=== PATIENT | male | born 1960 | race Caucasian/White ===

== ENCOUNTER 2019-12-24 07:49 | Inpatient (IN) | payer OTHER ==
[~2019-12-24] VITALS: Ht 175.3 cm; Wt 104.6 kg
[2019-12-24 07:45] VITALS: BP 117/70
[2019-12-24] MEDS ORDERED: PIPERACILLIN-TAZOB 3.375GM 100 ML IV ONE (08:15)
[2019-12-24] MEDS ORDERED: SODIUM CHLORIDE 0.9% 1,000 ML IV ONE ×2 (08:15)
[2019-12-24 08:24] LABS: Hemoglobin 14.5 g/dL (13.5-17.5); Mean Corpuscular Hemoglobin 29.7 pg (28.0-32.0); Mean Corpuscular Hgb Conc. 32.2 g/dL (32.0-36.0); Mean Corpuscular Volume 92.4 fL (80.0-100.0); Platelet Count (auto) 283 10^3/uL (140-450); Red Blood Cells 4.87 10^6/uL (4.5-5.90); Red Cell Distribution Width 15.3 % (11.8-14.3); White Blood Cell 24.3 10^3/uL (4.4-10.8)
[2019-12-24 08:32] LABS: Basophils % (manual) 0 (0.0-2.0); Blast Cells 0; Promyelocytes % 0; Reactive Lymphocytes 0
[2019-12-24 08:44] LABS: Urine Bacteria FEW /hpf (None Seen); Urine Blood Negative /uL (Negative); Urine Mucus FEW (None Seen); Urine Specific Gravity 1.017 (1.001-1.035); Urine WBC 2 /hpf (0 - 3)
[2019-12-24 08:46] LABS: Albumin 3.4 g/dL (3.4-5.0); Anion Gap 0 (5-15); Blood Urea Nitrogen 11 mg/dL (7-18); Calcium 8.5 mg/dL (8.5-10.1); Carbon Dioxide 33 mmol/L (21-32); Chloride 102 mmol/L (98-107); Glucose 268 mg/dL (74-106); Potassium 4.3 mmol/L (3.5-5.1); Sodium 135 mmol/L (136-145)
[2019-12-24 08:49] LABS: INR 0.97 (0.9-1.15); Partial Thromboplastin Time 21.8 sec (23.0-31.2)
[2019-12-24 08:51] LABS: Alanine Aminotransferase 40 U/L (16-61); Alkaline Phosphatase 78 U/L (45-117); Aspartate Aminotransferase 22 U/L (15-37); BUN/Creatinine Ratio 61.1; Bilirubin, Total 0.2 mg/dL (0.2-1.0); CRP High Sensitivity 0.62 mg/dL (< 0.3); GFR African American 707 mL/min; GFR Non-African American 584 mL/min; Lactate Dehydrogenase 195 U/L (87-241); Total Protein 7.2 g/dL (6.4-8.2)
[2019-12-24 09:07] LABS: Band Neutrophils % (manual) 2; Eosinophils % (manual) 1 (0-7); Lymphocytes % (manual) 4 (10.0-50.0); Metamyelocytes % 3; Monocytes % (manual) 11 (0-12); Myelocytes % 2
[2019-12-24] MEDS ORDERED: HYDROcodone-ACET 5/325MG TAB PO PRN ×2 (11:15→12:00)
[2019-12-24] MEDS ORDERED: NITROGLYCERIN 0.4 MG SL TAB SL PRN ×2 (11:15→12:00)
[2019-12-24] MEDS ORDERED: MORPHINE SULF INJ 2 MG/ML SYRINGE 1ML IV PRN ×4 (11:15→12:00)
[2019-12-24] MEDS ORDERED: ACETAMINOPHEN 325 MG TAB PO PRN ×2 (11:15→12:00)
[2019-12-24] MEDS ORDERED: ONDANSETRON HCL 4 MG/2 ML VIAL IV PRN ×2 (11:15→12:00)
[2019-12-24 12:09] VITALS: BP 123/87
[2019-12-24] MEDS: ENOXAPARIN SOD 40 MG/0.4 ML SYRINGE SC SCH (12:41)
[2019-12-24] MEDS: levoFLOXacin 500MG 100 ML IV SCH (12:41)
[2019-12-24] MEDS: FAMOTIDINE 20 MG TAB PO SCH ×2 (12:41→22:00)
[2019-12-24 14:04] VITALS: BP 123/87
[2019-12-24 14:28] VITALS: BP 135/90
--- NOTE | 2019-12-24 18:15 | NUR ---
Telemetry admit from ER PREETIAMBER admitted to Telemetry unit after SBAR received. Patient oriented to Patricia Larkin, primary RN, unit, room, bed, and unit policies regarding patient care and visiting hours. Patient now on continuous telemetry monitoring, tele box # 46 and telemetry reading on arrival to unit is sinus rhythm at 96. Patient placed on bedside oxygen, weighed by bedscale and encouraged to call if they need something. All questions and concerns addressed, patient verbalized understanding. Pt has a trach and connected to the vent, marcus draining to gravity, MRSA swab done and sent to lab, attempted to turn and reposition pt, pt refused to turn, elevated bilateral lower extremities on a pillow, will continue to monitor pt.
--- NOTE | 2019-12-24 19:00 | NUR ---
Received a call from pt's , Stefany Garcia, , pt's requesting for pt to have coughing assist treatments with the cough assist machine Q4 hr, pt was told by ER and RT that we do not have the cough assist machine here at the hospital and that we can not take or use pt's home machine, pt's requesting to come at the hospital and provide the treatments to the pt.
--- NOTE | 2019-12-24 19:10 | NUR ---
Called and talked to night shift manager charge nurse and inform her the pt's request to have RT provide pt with coughing assist treatments with the cough assist machine Q4 hr, pt's was told by ER and RT that we do not have the cough assist machine here at the hospital and that we can not take or use pt's home machine, pt's requesting to come at the hospital and provide the treatments to the pt. Charge nurse suggested to call doctor for an order and to ok for pt's to stay at the pt's room.
--- NOTE | 2019-12-24 19:20 | NUR ---
Called and talked to Dr. Stauffer, doctor informed that pt's is requesting for pt to have coughing assist treatments with the cough assist machine Q4 hr, doctor also informed that the hospital does not have the cough assist machine and that RT can not take or use pt's home machine, pt's requesting to come at the hospital and provide the treatments to the pt. Received orders for pt's to provide the cough treatments at bed side and ok for pt's to stay at the pt's room. Pt's informed. non destructive evaluation manager nurse informed.
--- NOTE | 2019-12-24 19:25 | NUR ---
Dr. Gonzales / industrial machine system technician at bed side to see pt, doctor discussed the plan of care with pt, doctor informed that pt's was ok to come and provide pt with the cough assist treatments at bed side Q4hr.
--- NOTE | 2019-12-24 19:35 | NUR ---
OPENING NOTE SHIFT Assumed care of patient from Patricia GODOY, patient is ALOCx4, pt has a permanent trach in place with vent set up bedside. No S/S of distress noted or SOB. Patient denies any pain at this time. POC discussed with pt and all questions answered. Bed in lowest position, locked, an side rails up x2. Call light within reach
[2019-12-24 20:00] VITALS: BP 118/82
--- NOTE | 2019-12-24 21:30 | NUR ---
BEDSIDE Patient is now bedside with cough assist machine. Will page RT.
[2019-12-24] MEDS ORDERED: FAMOTIDINE 20 MG TAB PO SCH (22:00)
[2019-12-24 22:04] VITALS: BP 118/84
[2019-12-25] VITALS (7 sets, daily range): BP systolic 90–119; BP diastolic 58–75
[2019-12-25] MEDS ORDERED: ASPI-543 PO (02:46)
[2019-12-25] MEDS ORDERED: PED1DRO5 PO (02:48)
[2019-12-25] MEDS ORDERED: PANT40TA2 PO (02:53)
[2019-12-25] MEDS ORDERED: CHOL20007 PO (02:53)
[2019-12-25] MEDS ORDERED: SENN-46 PO (02:59)
[2019-12-25] MEDS ORDERED: LORA5SYP23 PO (03:04)
[2019-12-25] MEDS ORDERED: ACET-1156 PO (03:04)
[2019-12-25] MEDS ORDERED: CLOT1CRE13 TOP (03:04)
[2019-12-25] MEDS ORDERED: [UNRECOGNIZED DRUG - CODE] BC (03:04)
[2019-12-25] MEDS ORDERED: DOCU100T15 PO (03:04)
[2019-12-25] MEDS ORDERED: IPRA0.03 (03:06)
[2019-12-25] MEDS ORDERED: BACI1CAP5 PO (03:11)
[2019-12-25] MEDS ORDERED: AMLO5TAB15 PO (03:11)
[2019-12-25] MEDS ORDERED: POLY33504 PO (03:14)
[2019-12-25] MEDS ORDERED: BISA10SU45 RE (03:16)
[2019-12-25 06:03] LABS: Hematocrit 40.3 % (41.0-53.0); Hemoglobin 13.3 g/dL (13.5-17.5); Mean Corpuscular Hemoglobin 29.4 pg (28.0-32.0); Mean Corpuscular Volume 89.1 fL (80.0-100.0); Platelet Count (auto) 269 10^3/uL (140-450); Red Blood Cells 4.52 10^6/uL (4.5-5.90); Red Cell Distribution Width 14.4 % (11.8-14.3); White Blood Cell 10.2 10^3/uL (4.4-10.8)
--- NOTE | 2019-12-25 06:03 | NUR ---
Respiratory note: RT PAGED TO BEDSIDE, REQUESTED BY PT'S TO TAKE PT OFF VENTILATOR FOR COUGH ASSIST. PER DR. CRENSHAW'S ORDERS, OK FOR TO PROVIDE COUGH ASSIST TREATMENT TO PT. PREOXYGENATED PT WITH 100% AND REMOVED FROM VENT. PT'S PERFORMED COUGH ASSIST TREATMENT WITH RT AT BEDSIDE, PT WAS SUCTIONED FOR MODERATE AMOUNT THICK WHITE/CLEAR SECRETIONS. PLACED PT BACK ON VENTILATOR WITH PREVIOUS SETTINGS. COMPLETED WITHOUT INCIDENT. TRACH ASSESSMENT COMPLETED. PT AWAKE AND ALERT, TOLERATING VENT WELL, NO S/S OF DISTRESS. AT BEDSIDE. WILL CONT TO MONITOR.
[2019-12-25 06:26] LABS: Basophils % (manual) 0 (0.0-2.0); Blast Cells 0; Metamyelocytes % 0; Myelocytes % 0; Promyelocytes % 0; Reactive Lymphocytes 0
[2019-12-25 06:32] LABS: Chloride 106 mmol/L (98-107); Sodium 139 mmol/L (136-145)
[2019-12-25 06:40] LABS: Alanine Aminotransferase 28 U/L (16-61); Albumin 3.1 g/dL (3.4-5.0); Alkaline Phosphatase 64 U/L (45-117); Anion Gap 10 (5-15); Aspartate Aminotransferase 18 U/L (15-37); Bilirubin, Total 0.4 mg/dL (0.2-1.0); Blood Urea Nitrogen 15 mg/dL (7-18); Calcium 8.8 mg/dL (8.5-10.1); Carbon Dioxide 23 mmol/L (21-32); GFR African American 872 mL/min; GFR Non-African American 721 mL/min; Glucose 100 mg/dL (74-106); Magnesium 2.3 mg/dL (1.6-2.6); Total Protein 6.3 g/dL (6.4-8.2)
[2019-12-25 06:43] LABS: Potassium 2.9 mmol/L (3.5-5.1)
--- NOTE | 2019-12-25 07:00 | NUR ---
PAGED HOSPITALIST Critical potassium 2.9
--- NOTE | 2019-12-25 07:17 | NUR ---
End of shift note Endorsed care to day shift Patricia GODOY. No s/s of distress or SOB noted
--- NOTE | 2019-12-25 08:32 | NUR ---
Received call back from Dr. gibson, doctor informed regarding the critical lab value potassium 2.9, received orders for potassium 40 meq po X1 and potassium 40meq IV X1.
[2019-12-25 08:37] LABS: Band Neutrophils % (manual) 3; Eosinophils % (manual) 2 (0-7); Lymphocytes % (manual) 18 (10.0-50.0); Monocytes % (manual) 8 (0-12)
[2019-12-25] MEDS ORDERED: POTASSIUM CHL 20 Meq TABLET PO ONE (08:45)
--- NOTE | 2019-12-25 09:00 | NUR ---
WOUND CARE NOTE: ORDERED SYNERGY AIR ELITE AIR MATTRESS AT THIS TIME. PATIENT TO BE PLACED, PENDING DELIVERY BY CHEO MITCHELL.
[2019-12-25] MEDS: FAMOTIDINE 20 MG TAB PO SCH ×2 (09:42→21:37)
[2019-12-25] MEDS: POTASSIUM CHL 20MEQ/100ML 100 ML IV SCH ×2 (09:44→12:53)
[2019-12-25] MEDS: levoFLOXacin 500MG 100 ML IV SCH (09:44)
[2019-12-25] MEDS: ENOXAPARIN SOD 40 MG/0.4 ML SYRINGE SC SCH (09:56)
[2019-12-25] MEDS ORDERED: levoFLOXacin 500MG 100 ML IV SCH (10:00)
[2019-12-25] MEDS ORDERED: ENOXAPARIN SOD 40 MG/0.4 ML SYRINGE SC SCH (10:00)
--- NOTE | 2019-12-25 11:25 | NUR ---
Called and spoke to Dr. Stauffer to inform that pt was not responding, and diaphoretic, BS 116, temp 99.2, BP 65/44, P 73, O2 sat 96%, pt on vent, rechecked BP 63/39, HR 72, received orders to give a 500ml bolus of NS, recheck pt's BP and if below 90 give another 500ml bolus, recheck BP and if BP is below 90 again to upgrade pt and to start on Levophed.
--- NOTE | 2019-12-25 11:30 | NUR ---
WOUND CARE NOTE: PATIENT RECENTLY ADMITTED TO [facility] WITH DIAGNOSIS OF ACUTE RESPIRATORY FAILURE, ALS. CURRENT CONY SCORE IS 12. PATIENT IS IMMOBILE, MAX ASSIST FOR HIS ADL'S. PATIENT IS VENTILATED WITH PERMANENT TRACHEOSTOMY. PATIENT IS UNRESPONSIVE RIGHT NOW, RESPIRATORY THERAPISTS ARE AT BEDSIDE. IS AT BEDSIDE. PATIENT. SKIN APPEARS PINK, BLANCHABLE, ALTHOUGH UNABLE TO ASSESS PATIENT'S SACRUM/BACK. PER BEDSIDE NURSE, SKIN ON BACKSIDE WAS BLANCHABLE AT LAST ASSESSMENT. SPECIALTY AIR MATTERESS IS PENDING DELIVERY. PATIENT WILL BE PLACED, PENDING DELIVERY. SKIN/WOUND CARE PLAN IMPLEMENTED. RECOMMEND: FREQUENT TURN SCHEDULE Q 2 HOURS,PRN CONDITION PERMITS, WITH PRESSURE REDISTRIBUTION USING PILLOWS/WEDGES, BID/PRN APPLICATION WITH MOISTURE BARRIER CREAM, OPTIFOAM GENTLE SACRAL DRESSING, SPECIALTY AIR MATTRESS, DIETARY CONSULT FOR IMMOBILITY/LOW CONY/VENTILATION; SKIN/WOUND CARE PLAN, CONTINUED MONITORING BY WOUND CARE TEAM.
--- NOTE | 2019-12-25 12:50 | NUR ---
Rechecked pt's BP 91/58, HR 70, O2 sat 97%, bolus given 500ml as per doctor's orders.
[2019-12-25] MEDS ORDERED: SODIUM CHLORIDE 0.9% 500 ML IV ONE (13:00)
--- NOTE | 2019-12-25 15:30 | NUR ---
Pt placed on air mattress with RT and PT at bed side.
--- NOTE | 2019-12-25 17:17 | NUR ---
Dr. Stauffer at unit to see pt. Signed: 12/25/19 at 1718 by SN LOLY <Co-Signature Required> Co-Signed: 12/25/19 at 1718 by Patricia Larkin RN
--- NOTE | 2019-12-25 19:20 | NUR ---
OPENING NOTE SHIFT Assumed care of patient from Patricia GODOY, patient is ALOCx4, pt has a permanent trach in place with vent set up bedside. No S/S of distress noted or SOB. Patient denies any pain at this time. is bedside, and POC discussed with pt and all questions answered. Bed in lowest position, locked, side rails up x2. Call light within reach. Will continue to monitor PRN.
[2019-12-26 05:00] VITALS: BP 94/65
[2019-12-26 05:49] LABS: Hemoglobin 12.7 g/dL (13.5-17.5); Mean Corpuscular Hemoglobin 30.1 pg (28.0-32.0); Mean Corpuscular Hgb Conc. 33.5 g/dL (32.0-36.0); Platelet Count (auto) 134 10^3/uL (140-450); Red Blood Cells 4.22 10^6/uL (4.5-5.90); Red Cell Distribution Width 14.8 % (11.8-14.3); White Blood Cell 7.4 10^3/uL (4.4-10.8)
[2019-12-26 06:12] LABS: Anion Gap 9 (5-15); Carbon Dioxide 22 mmol/L (21-32); Chloride 109 mmol/L (98-107); Glucose 91 mg/dL (74-106); Potassium 4.4 mmol/L (3.5-5.1); Sodium 140 mmol/L (136-145)
[2019-12-26 06:18] LABS: BUN/Creatinine Ratio 93.3; Basophils % (manual) 0 (0.0-2.0); Blast Cells 0; Blood Urea Nitrogen 14 mg/dL (7-18); Eosinophils % (manual) 0 (0-7); GFR African American 872 mL/min; GFR Non-African American 721 mL/min; Metamyelocytes % 0; Promyelocytes % 0; Reactive Lymphocytes 0
[2019-12-26 07:07] LABS: Band Neutrophils % (manual) 1; Lymphocytes % (manual) 49 (10.0-50.0); Monocytes % (manual) 16 (0-12); Myelocytes % 3
--- NOTE | 2019-12-26 07:30 | NUR ---
Opening Shift Note Assumed care of patient, awake, alert, and oriented. No S/S of distress/SOB or pain. Bed in lowest/locked position, bed rails up x2, call light within reach. , Jeimy, at bedside. Instructed on POC and to call for assist PRN. Will continue to monitor for changes Q1hr and PRN.
--- NOTE | 2019-12-26 07:30 | NUR ---
TURN PATIENT AND , NEIL, REFUSING PATIENT TO BE TURNED. EDUCATED PATIENT AND OF PREVENTING BED SORES. PATIENT AND VERBALIZED UNDERSTANDING, PER PATIENT "HE DOESN'T EVER GET BED SORES."
--- NOTE | 2019-12-26 07:31 | NUR ---
End of shift note Endorsed care to day shift Shanta RN. No s/s of distress or SOB noted at this time.
[2019-12-26 09:00] VITALS: BP 105/71
[2019-12-26] MEDS: FAMOTIDINE 20 MG TAB PO SCH ×2 (09:20→21:54)
[2019-12-26] MEDS: ENOXAPARIN SOD 40 MG/0.4 ML SYRINGE SC SCH (09:21)
[2019-12-26] MEDS: levoFLOXacin 500MG 100 ML IV SCH (09:26)
--- NOTE | 2019-12-26 09:30 | NUR ---
TURN PATIENT AND , NEIL, REFUSING PATIENT TO BE TURNED. EDUCATED PATIENT AND OF PREVENTING BED SORES. PATIENT AND VERBALIZED UNDERSTANDING, CONTINUING TO REFUSE PATIENT BEING TURNED. WILL CONTINUE TO MONITOR
--- NOTE | 2019-12-26 09:33 | NUR ---
MD ROUNDS DR CRENSHAW AT BEDSIDE
--- NOTE | 2019-12-26 10:30 | NUR ---
TURN/ENTERTAINMENT MUSICIAN ENTERTAINMENT MUSICIAN, DAYANA, AT BEDSIDE REQUESTING PATIENT TO BE TURNED TO LEFT SIDE PATIENT POSITIONED TO LEFT SIDE, PILLOW UNDER RIGHT SIDE. PATIENT TOLERATED WELL. WILL CONTINUE TO MONITOR
--- NOTE | 2019-12-26 10:51 | NUR ---
RECORDS ANALYSIS MANAGER RECORDS ANALYSIS MANAGERDAYANA, FINISHED ECHO, REMOVED PILLOW FROM RIGHT SIDE PER PATIENT REQUEST. WILL CONTINUE TO MONITOR
--- NOTE | 2019-12-26 11:00 | NUR ---
MD CALL RECEIVED CALL FROM DR LOZADA RE: PATIENT TRACHEOSTOMY. UPDATE DR LOZADA ON TRACHEOSTOMY DATE LAST CHANGED, SIZE AND CUFFED. PER DR LOZADA; HE WILL CHANGE OUT TO NEW TRACHEOSTOMY EITHER TONIGHT OR TOMORROW. UPDATED PATIENT ND . WILL CONTINUE TO MONITOR
--- NOTE | 2019-12-26 12:00 | NUR ---
TURN PATIENT AND , NEIL, REFUSING PATIENT TO BE TURNED. EDUCATED PATIENT OF PREVENTING BED SORES. PATIENT VERBALIZED UNDERSTANDING, CONTINUING TO REFUSE PATIENT BEING TURNED. WILL CONTINUE TO MONITOR
--- NOTE | 2019-12-26 14:08 | NUR ---
Nutrition Consult Est energy needs [id number] kcal (20-25 kcal/kg BW 102.3kg) Est protein needs 75-90g (1-1.2g/kg IBW 75kg) Will reassess prn. Addendum: 12/26/19 at [address] Amended: Links added.
--- NOTE | 2019-12-26 14:18 | NUR ---
TURN PATIENT AND , NEIL, REFUSING PATIENT TO BE TURNED. EDUCATED PATIENT OF PREVENTING BED SORES. PATIENT VERBALIZED UNDERSTANDING, STATING "HE'S COMFORTABLE." AND CONTINUING TO REFUSE PATIENT BEING TURNED. WILL CONTINUE TO MONITOR
[2019-12-26 17:00] VITALS: BP 104/72
[2019-12-26 22:00] VITALS: BP 106/68
--- NOTE | 2019-12-26 22:03 | NUR ---
Patient cleaned. Linens changed. Patient refuses to be turned. Stated he wishes to stay on his back. Patient and educated on benefits of changing positions.
--- NOTE | 2019-12-26 22:11 | NUR ---
RT paged at patient request.
--- NOTE | 2019-12-26 22:14 | NUR ---
Respiratory note: AT BEDSIDE FOR ROUTINE VENT CHECK. LARGE LEAK HEARD. WAS PAGED TO BEDSIDE FOR ASSISTANCE IN SX. WILL CONTINUE TO MONITOR.
--- NOTE | 2019-12-27 00:17 | NUR ---
AT BEDSIDE. PT VT IN 78-85ML RANGE. AUDIBLE LEAK. PT CUFF FULLY INFLATED. PT AIRWAY WAS REPOSITIONED AND SECURED WITH EXTRA GAUZE. VT NOW 170-352ML RANGE. AT BEDSIDE. SHE STATES SHE WANTS THE TRACH CHANGED OUT, AND HOPES IT WILL HAPPEN SOON. REASSURED PT. AIRWAY SECURE.
--- NOTE | 2019-12-27 00:45 | NUR ---
RT bedside assessing patient. Patient is having leaks/low volume with ventilator. Spoke with RT she will talk to hospitalist and possibly ER doctor to she if they will change his trach at this time.
--- NOTE | 2019-12-27 01:17 | NUR ---
SPOKE WITH ER PHYSICIAN MD MAYBERRY REGARDING PT AIRWAY STATUS AND LEAK ISSUES. STATES THAT IF AN EMERGENT SITUATION ARISES HE WILL CHANGE TRACH. HOWEVER PT IS STABLE, AWAKE AND ALERT AND ALL VITALS WNL. PT WILL BE CONSULTED WITH PULMONOLOGY FOR FOLLOW UP. JAYNE MEJIAS.
[2019-12-27 05:39] LABS: Basophils # (auto) 0.1 10 ^3/uL (0-0.2); Basophils % (auto) 0.9 % (0.0-2.0); Eosinophils # (auto) 0.1 10 ^3/uL (0-0.8); Eosinophils % (auto) 1.4 % (0.0-7.0); Hematocrit 35.7 % (41.0-53.0); Lymphocytes # (auto) 2.7 10 ^3/uL (0.4-5.4); Lymphocytes % (auto) 39.3 % (10.0-50.0); Mean Corpuscular Hgb Conc. 33.6 g/dL (32.0-36.0); Mean Corpuscular Volume 89.3 fL (80.0-100.0); Monocytes # (auto) 1.2 10 ^3/uL (0-1.3); Monocytes % (auto) 17.5 % (0.0-12.0); Neutrophils # (auto) 2.8 10 ^3/uL (1.6-8.6); Neutrophils % (auto) 40.9 % (37.0-80.0); Nucleated Red Blood Cells % 0.1 %; Platelet Count (auto) 229 10^3/uL (140-450); Red Cell Distribution Width 14.9 % (11.8-14.3); White Blood Cell 6.8 10^3/uL (4.4-10.8)
[2019-12-27 05:48] VITALS: BP 102/71
[2019-12-27 05:54] LABS: Anion Gap 9 (5-15); Blood Urea Nitrogen 12 mg/dL (7-18); Calcium 8.6 mg/dL (8.5-10.1); Carbon Dioxide 21 mmol/L (21-32); Chloride 112 mmol/L (98-107); Glucose 95 mg/dL (74-106); Potassium 3.5 mmol/L (3.5-5.1); Sodium 142 mmol/L (136-145)
[2019-12-27 06:14] LABS: GFR African American 872 mL/min; GFR Non-African American 721 mL/min
--- NOTE | 2019-12-27 07:45 | NUR ---
Opening Shift Note Assumed care of patient, resting, even unlabored respirations. No S/S of distress/SOB or pain. Bed in lowest/locked position, bed rails up x2, call light within reach. , Jeimy, at bedside. Will continue to monitor for changes Q1hr and PRN.
[2019-12-27 09:00] VITALS: BP 96/67
[2019-12-27] MEDS: levoFLOXacin 500MG 100 ML IV SCH (09:14)
[2019-12-27] MEDS: ENOXAPARIN SOD 40 MG/0.4 ML SYRINGE SC SCH (09:15)
[2019-12-27] MEDS: FAMOTIDINE 20 MG TAB PO SCH ×2 (09:15→21:35)
--- NOTE | 2019-12-27 11:48 | NUR ---
TURN PATIENT AND , NEIL, REFUSING PATIENT TO BE TURNED. EDUCATED PATIENT OF PREVENTING BED SORES. PATIENT VERBALIZED UNDERSTANDING SAYS "HE IS COMFORTABLE.", CONTINUING TO REFUSE PATIENT BEING TURNED. WILL CONTINUE TO MONITOR
[2019-12-27 13:00] VITALS: BP 99/63
--- NOTE | 2019-12-27 13:10 | NUR ---
CALL RECEIVED CALL FROM DR LOZADA RE: TRACH REPLACEMENT. NEW ORDERS RECEIVED/WILL CARRY OUT. WILL CONTINUE TO MONITOR
--- NOTE | 2019-12-27 14:20 | NUR ---
KIERRA LOZADA AT BEDSIDE FOR TRACH REPLACEMENT, RT THIS RN AT BEDSIDE. 7.O MM PORTEX, GAUZE PLACED. PATIENT O2 98%. PATIENT TOLERATED WELL. NEW ORDERS RECEIVED/WILL CARRY OUT. WILL CONTINUE TO MONITOR
--- NOTE | 2019-12-27 14:30 | NUR ---
TRACHEOSTOMY TUBE CHANGED BY DR. LOZADA. SIZE 7.0 PORTEX WITHOUT DIFFICULTY. SP02 98%, NO RESP. DISTRESS NOTED, PT. TOLERATED THE EXCHANGE WELL. X-RAY ORDERED, WILL CONTINUE TO MONITOR O2 SATS.
--- NOTE | 2019-12-27 14:50 | NUR ---
O2 ASSESSMENT PATIENT O2 98%. TOLERATING VENT. NO S/S OF DISTRESS, SOB. WILL CONTINUE TO MONITOR
--- NOTE | 2019-12-27 15:24 | NUR ---
O2 ASSESSMENT PATIENT O2 96%. TOLERATING VENT. NO S/S OF DISTRESS, SOB. WILL CONTINUE TO MONITOR
--- NOTE | 2019-12-27 16:30 | NUR ---
O2 ASSESSMENT PATIENT O2 96%. TOLERATING VENT. NO S/S OF DISTRESS, SOB. WILL CONTINUE TO MONITOR
[2019-12-27 16:52] VITALS: BP 100/65
--- NOTE | 2019-12-27 18:26 | NUR ---
TURN PATIENT AND , NEIL, REFUSING PATIENT TO BE TURNED. EDUCATED PATIENT OF PREVENTING BED SORES. PATIENT VERBALIZED UNDERSTANDING SAYS "HE IS COMFORTABLE." AND CONTINUING TO REFUSE PATIENT BEING TURNED. WILL CONTINUE TO MONITOR
[2019-12-27 22:00] VITALS: BP 110/71
[2019-12-28 05:00] VITALS: BP 109/71
[2019-12-28 05:35] LABS: Basophils # (auto) 0.1 10 ^3/uL (0-0.2); Basophils % (auto) 0.7 % (0.0-2.0); Eosinophils # (auto) 0.1 10 ^3/uL (0-0.8); Eosinophils % (auto) 1.9 % (0.0-7.0); Hematocrit 36.5 % (41.0-53.0); Hemoglobin 12.1 g/dL (13.5-17.5); Lymphocytes # (auto) 1.9 10 ^3/uL (0.4-5.4); Lymphocytes % (auto) 27.1 % (10.0-50.0); Mean Corpuscular Hemoglobin 29.9 pg (28.0-32.0); Mean Corpuscular Hgb Conc. 33.2 g/dL (32.0-36.0); Mean Corpuscular Volume 90.3 fL (80.0-100.0); Monocytes # (auto) 1.1 10 ^3/uL (0-1.3); Monocytes % (auto) 15.3 % (0.0-12.0); Neutrophils # (auto) 3.9 10 ^3/uL (1.6-8.6); Nucleated Red Blood Cells % 0.2 %; Platelet Count (auto) 226 10^3/uL (140-450); Red Blood Cells 4.04 10^6/uL (4.5-5.90); Red Cell Distribution Width 14.7 % (11.8-14.3); White Blood Cell 7.2 10^3/uL (4.4-10.8)
[2019-12-28 05:52] LABS: Calcium 8.3 mg/dL (8.5-10.1); Potassium 3.5 mmol/L (3.5-5.1)
--- NOTE | 2019-12-28 07:25 | NUR ---
Opening Shift Note Assumed care of patient, awake and alert. No S/S of distress/SOB or pain. Instructed on POC and to call for assist PRN, will continue to monitor for changes Q1hr and PRN. present at bedside. Safety precautions in place.
--- NOTE | 2019-12-28 08:05 | NUR ---
Respiratory note: CALLED TO PATIENTS ROOM AT 'S REQUEST TO REMOVE HIM FROM VENT AND PLACE ON THEIR PERSONAL "COUGH ASSIST" MACHINE FOR BREATHING TREATMENT. I EXPLAINED TO THE THAT IT IS OUR POLICY THAT HOME EQUIPMENT IS NOT TO BE USED WHILE UNDER OUR CARE AND THAT I COULD NOT REMOVE HIM FROM THE VENT TO PLACE HIM ON HER MACHINE. SHE INFORMED ME THEY HAVE BEEN DOING THIS SINCE SATURDAY HERE. I AGAIN EXPLAINED TO HER THAT IT WAS AGAINST OUR POLICY TO USE ANY HOME EQUIPMENT AND ALSO THAT I WOULD NOT FEEL COMFORTABLE REMOVING HIM FROM OUR MECHANICAL VENTILATOR TO PLACE HIM ON A MACHINE THAT IS NOT OURS AND THAT I AM UNFAMILIAR WITH. I INFORMED THE PATIENT AND THAT I WOULD CHECK WITH MY DIRECTOR TO SEE IF WE HAVE INDEED ALLOWED THIS CHANGE OF EQUIPMENT TO HAPPEN. PATIENT IS SHOWING NO SIGNS/SYMPTOMS OF ANY RESPIRATORY DISTRESS. SPO2 99% HR 78, RR 22
--- NOTE | 2019-12-28 08:48 | NUR ---
Called/paged Dr. Stauffer called regarding patient's request to be discharged. Waiting for call back. Continue care.
[2019-12-28 08:52] VITALS: BP 113/70
--- NOTE | 2019-12-28 09:07 | NUR ---
returned call Dr. Stauffer returned call, updated on patient status and reason for call. Dr stauffer verbalized that he will not see the patient until this afternoon to discharge them. Continue care.
[2019-12-28] MEDS: levoFLOXacin 500MG 100 ML IV SCH (10:19)
[2019-12-28] MEDS: FAMOTIDINE 20 MG TAB PO SCH ×2 (10:20→21:53)
[2019-12-28] MEDS: ENOXAPARIN SOD 40 MG/0.4 ML SYRINGE SC SCH (10:20)
[2019-12-28 13:00] VITALS: BP 114/77
[2019-12-28 15:48] VITALS: BP 114/77
[2019-12-28] MEDS ORDERED: levoFLOXacin 250MG 50 ML IV ONE (16:15)
--- NOTE | 2019-12-28 16:20 | NUR ---
Respiratory note: PATIENT REMOVED FROM VENT TO ALLOW TO PLACE ON COUGH ASSIST MACHINE AND TO SUCTION. THIS LASTED FOR APPROX 5MIN AND I REMAINED AT BEDSIDE FOR DURATION OF COUGH ASSIST THERAPY. PATIENT TOLERATED WELL, DID DESAT TO 84% DURING SUCTION, HOWEVER, HE WAS PLACED BACK ON MECHANICAL VENT AND SPO2 QUICKLY INCREASED BACK UP TO 98% AND STABILIZED THERE. COUGH ASSIST PROCEDURE COMPLETED WITHOUT INCIDENT.
--- NOTE | 2019-12-28 16:30 | NUR ---
I called [employer] Mattress Inspector Luke [phone] extension [phone] and was told that they do not provided authorization for transportation home, only for acute to acute transportation. I called [employer] Mattress Inspector Martha [phone] ext [phone] and left message requesting authorization number for [facility] to transport home.
--- NOTE | 2019-12-28 16:38 | NUR ---
D/C bench tool maker Jason advised me patient is vent/trach and needs transportation home. Called [facility] [phone]. Per Flores with [facility] authorization is needed and transportation will be ON WILL CALL for now. Informed MADELINE Sales who will be contacting [facility] for authorization since [facility] group will not provide authorization unless is from acute to acute. Informed JAYNE Greenberg. Informed patient and who is at bedside authorization is pending for [facility].
[2019-12-28 16:58] VITALS: BP 112/68
--- NOTE | 2019-12-28 19:30 | NUR ---
Opening Shift Note Report received from JAYNE Greenberg. Per JAYNE Greenberg, patient has discharge orders awaiting for authorization for [facility]. library services dean working on it. Called and verified with [facility], still on will call, awaiting for authorization. Per JAYNE Greenberg, Dr. Stauffer aware. Assumed care of patient, awake and alert. Patient on ventilator via tracheostomy tube, at bedside allowed to assist with care as per communication order of Dr. Stauffer. No S/S of acute respiratory distress/SOB or pain. Instructed on POC and to call for assist PRN, will continue to monitor for changes Q1hr and PRN.
--- NOTE | 2019-12-28 19:50 | NUR ---
RESIDUAL CHECK Residual check from peg tube, no residual noted at this time. Will bolus Ensure per MD orders. Addendum: 12/29/19 at 0646 by HELEN FISHER RN RN this note is for a different patient
[2019-12-28 22:00] VITALS: BP 111/80
[2019-12-29 05:00] VITALS: BP 119/87
[2019-12-29 09:00] VITALS: BP 120/67
--- NOTE | 2019-12-29 09:02 | NUR ---
I received a message from Marian at [facility] letting me know that [employer] should be the ones providing authorization for transportation home. I called [facility] [phone] ext [phone] and left message for Martha asking for clarification. I also called [facility] and spoke with Cryptological Technician Luke [phone] ext [phone] and made him aware-he said he would speak with his director and give me a call back.
[2019-12-29] MEDS ORDERED: levoFLOXacin 750MG 150 ML IV SCH (10:00)
--- NOTE | 2019-12-29 10:59 | NUR ---
I received a call from Nancy at [facility] ([phone] ext [phone])-she stated to reach out to [facility] for patient's transportation home. Per [employer] they can not accommodate patient's needs. I called Nancy back and made her aware-asked her to call [facility] and speak with Flores to give her transportation authorization.
[2019-12-29] MEDS: ENOXAPARIN SOD 40 MG/0.4 ML SYRINGE SC SCH (11:01)
[2019-12-29] MEDS: FAMOTIDINE 20 MG TAB PO SCH (11:01)
--- NOTE | 2019-12-29 11:42 | NUR ---
I received a call from [employer] Retail Operations Manager Luke-I let him know that [facility] can not transport patient. Per Luke he will contact Nancy at [facility] for an update.
--- NOTE | 2019-12-29 12:39 | NUR ---
Nutrition Followup Notes Wt: 104.6 kg Pt was sleeping on trach with no distress noted. pt is currently on cardiac soft diet with adequate PO fo 100% x 4 per RN doc Est energy needs [phone] kcal (20-25 kcal/kg BW 102.3kg) Est protein needs 75-90g (1-1.2g/kg IBW 75kg) Will reassess prn. LABS: CA 8.3 L ALB 3.1 L GI: Pt had 1 BM today per RN doc BS: 13 mod risk. Refer to wound assessment report for full details. PES: Obesity aeb pt with a BMI of 33.3kg/m2 r/t caloric intake in excess of needs Comments Comments: Will continue to monitor PO status, skin status, pertinent labs and weight trends. Will f/u in 3-5 days. rec: 1) Continue to monitor po intake, labs, skin 2) refer pt to [facility] on Dc 3) Continue current plan of care
--- NOTE | 2019-12-29 13:52 | NUR ---
I called [facility] Intelligence Consultant Nancy [phone] ext [phone] and let her know that [employer] can not accommodate the patient's needs. Per Nancy she will contact [facility] regarding authorization.
--- NOTE | 2019-12-29 14:44 | NUR ---
I called [facility] and spoke with Flores, she said they have received the hard copy authorization from [facility] and to let them know when we are ready to transport patient. I relayed this information to Luke-[facility] Digital Content Coordinator as well as Fatimah-pediatric social worker.
--- NOTE | 2019-12-29 14:44 | NUR ---
D/C planning Per MADELINE Sales patient health plan has approved for [facility] and authorization has been faxed to [facility]. Placed call to [facility] spoke to Yvette. Informed Yvette with [facility] patient is on vent, trach and receiving deep suctioning. Transportation has been arranged for 16:30. Informed JAYNE Greenberg.
[2019-12-29 17:00] VITALS: BP 101/62
--- NOTE | 2019-12-29 18:58 | NUR ---
Discharge instructions given as ordered. Encourage to follow up with PMD as instructed. All questions and concerns addressed. Patient verbalized understanding. Medication reconciliation form completed and copy given to patient. IV removed with catheter intact, pressure dressing applied, marcus catheter removed. Telemetry unit returned to ICU. Patient taken to vehicle via wheelchair with all personal belongings, accompanied by [facility]. No distress noted at time of departure.
== END 2019-12-29 18:59 | disposition home or self-care (01) | DRG 870 ==
LOC: ER 07:49 → TELE 07:50 → TELE-CENTR 18:10
PROVIDERS: ADMIT Internal Medicine; ATTEND Internal Medicine
PROC: 5A1955Z Respiratory Ventilation, Greater than 96 Consecutive Hours (ICD-10-PCS; principal; 2019-12-24)
PROC: 0B21XFZ Change Tracheostomy Device in Trachea, External Approach (ICD-10-PCS; 2019-12-24)
DX: A41.9 Sepsis, unspecified organism (principal); J15.1 Pneumonia due to Pseudomonas; G93.41 Metabolic encephalopathy; G82.50 Quadriplegia, unspecified; J96.22 Acute and chronic respiratory failure with hypercapnia; G12.21 Amyotrophic lateral sclerosis; Z99.11 Dependence on respirator [ventilator] status; I42.9 Cardiomyopathy, unspecified; E87.6 Hypokalemia; I10 Essential (primary) hypertension; E11.9 Type 2 diabetes mellitus without complications; Z20.828 Contact with and (suspected) exposure to other viral communicable diseases; Z93.0 Tracheostomy status; Z09 Encounter for follow-up examination after completed treatment for conditions other than malignant neoplasm; Z79.899 Other long term (current) drug therapy; Z79.01 Long term (current) use of anticoagulants
CPT/HCPCS: 36415; 36600; 51702; 70450; 71045; 71250; 74176; 80048; 80053; 81001; 82728; 82805; 82962; 83036; 83605; 83615; 83735; 83880; 84484; 85007; 85025; 85027; 85610; 85730; 86141; 87040; 87070; 87077; 87081; 87186; 87205; 87426; 93306; 93970; 94002; 94003; 96365; 96366; 96368; 96372; 99291; A4605; G0378; J1956; J2543; J3480

== ENCOUNTER 2021-11-16 23:00 | Inpatient (IN) | payer OTHER ==
[~2021-11-16] VITALS: Ht 175.3 cm; Wt 88.0 kg
[~2021-11-16 23:00] MED LIST: ACET-1156 PO; AMLO-489 PO; ASPI-543 PO; BACI1CAP5 PO; BISA10SU45 RE; CHOL20007 PO; CLOT1CRE13 TOP; DOCU100T15 PO; IPRA0.03; LORA5SYP23 PO; PANT40TA2 PO; POLY33504 PO; SENN-36 PO; [UNRECOGNIZED DRUG - CODE] BC
[2021-11-17] VITALS (11 sets, daily range): BP systolic 102–152; BP diastolic 50–118
[2021-11-17] MEDS ORDERED: cefTRIAXone 1GM/50ML D5W 50 ML IV ONE (00:30)
[2021-11-17 00:36] LABS: Alanine Aminotransferase 84 U/L (16-61); Albumin 3.8 g/dL (3.4-5.0); Anion Gap 17 (5-15); Aspartate Aminotransferase 56 U/L (15-37); BUN/Creatinine Ratio 23.5; Blood Urea Nitrogen 12 mg/dL (7-18); Calcium 10.6 mg/dL (8.5-10.1); Carbon Dioxide 12 mmol/L (21-32); Chloride 109 mmol/L (98-107); GFR African American 211 mL/min; GFR Non-African American 174 mL/min; Glucose 188 mg/dL (74-106); Magnesium 2.6 mg/dL (1.6-2.6); Potassium 4.4 mmol/L (3.5-5.1); Sodium 138 mmol/L (136-145)
[2021-11-17 00:38] LABS: Alkaline Phosphatase 115 U/L (45-117); Bilirubin, Total 0.5 mg/dL (0.2-1.0); Total Protein 8.5 g/dL (6.4-8.2)
[2021-11-17 00:46] LABS: Basophils # (auto) 0 10 ^3/uL (0-0.2); Basophils % (auto) 0.2 % (0.0-2.0); Eosinophils # (auto) 0 10 ^3/uL (0-0.8); Eosinophils % (auto) 0.1 % (0.0-7.0); Hemoglobin 18.1 g/dL (13.5-17.5); Lymphocytes # (auto) 1.7 10 ^3/uL (0.4-5.4); Lymphocytes % (auto) 8.1 % (10.0-50.0); Mean Corpuscular Hemoglobin 30.4 pg (28.0-32.0); Mean Corpuscular Hgb Conc. 32.2 g/dL (32.0-36.0); Mean Corpuscular Volume 94.2 fL (80.0-100.0); Monocytes # (auto) 1.7 10 ^3/uL (0-1.3); Monocytes % (auto) 7.9 % (0.0-12.0); Neutrophils # (auto) 17.6 10 ^3/uL (1.6-8.6); Neutrophils % (auto) 83.7 % (37.0-80.0); Nucleated Red Blood Cells % 0.2 %; Red Blood Cells 5.94 10^6/uL (4.5-5.90)
[2021-11-17] MEDS ORDERED: SODIUM CHLORIDE 0.9% 1,000 ML IV ONE (01:30)
[2021-11-17] MEDS ORDERED: PIPERACILLIN-TAZOB 3.375GM 100 ML IV ONE (02:00)
[2021-11-17] MEDS ORDERED: ONDANSETRON HCL 4 MG/2 ML VIAL IV PRN (02:15)
[2021-11-17] MEDS ORDERED: hydrALAZINE HCL 20 MG/ML VL IV PRN (02:15)
[2021-11-17] MEDS ORDERED: AZITHROMYCIN 500MG/ 250ML 250 ML IV ONE (02:15)
[2021-11-17] MEDS ORDERED: IBUPROFEN 600 MG TAB PO PRN (02:15)
[2021-11-17] MEDS ORDERED: DOCUSATE SOD 100 MG CAP PO PRN (02:15)
[2021-11-17] MEDS ORDERED: DEXTROSE (50%) 50ML SYRG IV PRN (02:15)
[2021-11-17] MEDS ORDERED: MORPHINE SULFATE INJ 2 MG/ml SYRG IV PRN ×2 (02:15→04:00)
[2021-11-17] MEDS ORDERED: NITROGLYCERIN 0.4 MG SL TAB SL PRN (04:00)
[2021-11-17] MEDS: SODIUM CHLORIDE 0.9% 1,000 ML IV SCH ×2 (05:24→18:55)
[2021-11-17 05:31] LABS: Urine Bacteria NONE SEEN /hpf (None Seen); Urine Blood 2+ /uL (Negative); Urine Hyaline Cast MOD /lpf (0 - 2); Urine Specific Gravity 1.024 (1.001-1.035); Urine WBC 5 /hpf (0 - 3)
[2021-11-17] MEDS: ACCU-CHEK COMFORT CURVE STRIP VI SCH ×3 (06:42→18:10)
[2021-11-17] MEDS: InsuLIN REG 1unit/0.01ml Soln (100units/ml) SC SCH ×4 (06:44→18:13)
[2021-11-17 07:28] LABS: Hematocrit 53.8 % (41.0-53.0); Hemoglobin 16.3 g/dL (13.5-17.5); Mean Corpuscular Hemoglobin 29.1 pg (28.0-32.0); Mean Corpuscular Hgb Conc. 30.3 g/dL (32.0-36.0); Red Blood Cells 5.61 10^6/uL (4.5-5.90); Red Cell Distribution Width 17.1 % (11.8-14.3); White Blood Cell 26.3 10^3/uL (4.4-10.8)
[2021-11-17 07:31] LABS: Basophils % (manual) 0 (0.0-2.0); Blast Cells 0; Eosinophils % (manual) 0 (0-7); Metamyelocytes % 0; Myelocytes % 0; Promyelocytes % 0; Reactive Lymphocytes 0
[2021-11-17 08:12] LABS: Band Neutrophils % (manual) 8; Lymphocytes % (manual) 17 (10.0-50.0); Monocytes % (manual) 7 (0-12)
[2021-11-17 08:53] LABS: Anion Gap 24 (5-15); Chloride 108 mmol/L (98-107); Sodium 136 mmol/L (136-145)
[2021-11-17 08:56] LABS: Carbon Dioxide 4 mmol/L (21-32)
[2021-11-17 08:57] LABS: Alkaline Phosphatase 100 U/L (45-117); BUN/Creatinine Ratio 35.4; Blood Urea Nitrogen 17 mg/dL (7-18); GFR African American 226 mL/min; GFR Non-African American 187 mL/min; Glucose 227 mg/dL (74-106)
[2021-11-17 08:58] LABS: Alanine Aminotransferase 66 U/L (16-61); Albumin 3.3 g/dL (3.4-5.0); Aspartate Aminotransferase 42 U/L (15-37); Bilirubin, Total 0.5 mg/dL (0.2-1.0); Calcium 9.5 mg/dL (8.5-10.1); Total Protein 7.5 g/dL (6.4-8.2)
[2021-11-17] MEDS ORDERED: cefTRIAXone 1GM/50ML D5W 50 ML IV SCH (09:00)
[2021-11-17] MEDS: METOPROLOL TARTRATE 25 MG TAB PO SCH ×2 (10:00→10:59)
[2021-11-17] MEDS ORDERED: PANTOPRAZOLE 40 MG/10 ML VIAL INJ IV SCH (10:00)
[2021-11-17] MEDS: ASPirin 81 mg TAB PO SCH ×2 (10:00→10:59)
[2021-11-17] MEDS: amLODIPine BESYLATE 5 MG TAB PO SCH ×2 (10:00→10:58)
[2021-11-17] MEDS ORDERED: AZITHROMYCIN 500MG/ 250ML 250 ML IV SCH (10:00)
[2021-11-17] MEDS ORDERED: LIDOCAINE HCL 5 % TOP OINT 35 GM TOP ONE (12:45)
[2021-11-17] MEDS ORDERED: VANCOMYCIN 1GM/250ML 250 ML IV ONE (14:15)
[2021-11-17] MEDS ORDERED: VANCOMYCIN PER PHARMACY 0 MG IV SCH (14:15)
[2021-11-17] MEDS ORDERED: SODIUM BICARBONATE 8.4 % INJ 50ML VIAL IV ONE ×2 (14:15→17:00)
[2021-11-17] MEDS: SODIUM CHLORIDE 0.9% 1,000 ML IV ONE ×2 (14:15→15:51)
[2021-11-17] MEDS ORDERED: InsuLIN REG 1unit/0.01ml Soln (100units/ml) SC SCH (22:00)
[2021-11-18] MEDS ORDERED: VANCOMYCIN 1GM/250ML 250 ML IV SCH (01:00)
== END 2021-11-17 19:40 | disposition short-term general hospital (02) | DRG 871 ==
LOC: EDBD 23:00 → ER 23:00 → TELE 11-17 03:50
PROVIDERS: ADMIT Nurse Practitioner Family; ATTEND Internal Medicine
PROC: 5A1935Z Respiratory Ventilation, Less than 24 Consecutive Hours (ICD-10-PCS; principal; 2021-11-16)
DX: A41.9 Sepsis, unspecified organism (principal); J18.9 Pneumonia, unspecified organism; J96.21 Acute and chronic respiratory failure with hypoxia; Z99.11 Dependence on respirator [ventilator] status; G12.21 Amyotrophic lateral sclerosis; E11.65 Type 2 diabetes mellitus with hyperglycemia; I11.9 Hypertensive heart disease without heart failure; R74.8 Abnormal levels of other serum enzymes; Z20.822 Contact with and (suspected) exposure to COVID-19; R65.20 Severe sepsis without septic shock; Z93.0 Tracheostomy status
CPT/HCPCS: 36415; 36600; 71045; 71250; 74176; 80053; 81001; 82805; 82962; 83036; 83605; 83735; 83880; 84443; 84484; 85007; 85025; 85027; 87040; 87070; 87077; 87186; 87205; 93005; 94002; 94003; 96365; 96366; 96367; 96368; 96372; 96375; 96376; 99291; C9113; G0378; J0696; J1815; J2543

== ENCOUNTER 2021-12-26 15:54 | Emergency (ER) | payer OTHER ==
[~2021-12-26] VITALS: Ht 175.3 cm; Wt 107.0 kg
[2021-12-26] MEDS ORDERED: ACETAMINOPHEN 500 MG TAB PO ONE (19:15)
[2021-12-26] MEDS ORDERED: PIPERACILLIN-TAZOB 3.375GM 100 ML IV ONE (19:15)
[2021-12-26 20:00] VITALS: BP 137/82
[2021-12-26 20:21] LABS: Basophils # (auto) 0.1 10 ^3/uL (0-0.2); Basophils % (auto) 0.8 % (0.0-2.0); Eosinophils # (auto) 0.3 10 ^3/uL (0-0.8); Eosinophils % (auto) 2.9 % (0.0-7.0); Hematocrit 39.7 % (41.0-53.0); Hemoglobin 12.7 g/dL (13.5-17.5); Lymphocytes # (auto) 1.9 10 ^3/uL (0.4-5.4); Lymphocytes % (auto) 20.5 % (10.0-50.0); Mean Corpuscular Hemoglobin 29.2 pg (28.0-32.0); Mean Corpuscular Hgb Conc. 32.1 g/dL (32.0-36.0); Monocytes % (auto) 11.1 % (0.0-12.0); Neutrophils # (auto) 6.1 10 ^3/uL (1.6-8.6); Neutrophils % (auto) 64.7 % (37.0-80.0); Red Blood Cells 4.37 10^6/uL (4.5-5.90); Red Cell Distribution Width 16.7 % (11.8-14.3); White Blood Cell 9.4 10^3/uL (4.4-10.8)
[2021-12-26 20:39] LABS: Albumin 3.2 g/dL (3.4-5.0); Calcium 9.3 mg/dL (8.5-10.1); Potassium 3.7 mmol/L (3.5-5.1)
[2021-12-26 20:42] LABS: BUN/Creatinine Ratio 82.4; Bilirubin, Total 0.4 mg/dL (0.2-1.0)
[2021-12-26 20:44] LABS: Partial Thromboplastin Time 25.8 sec (24.6-33.4)
[2021-12-26 20:45] LABS: Urine Bacteria NONE SEEN /hpf (None Seen); Urine Blood Negative /uL (Negative); Urine WBC 1 /hpf (0 - 3)
[2021-12-26 23:30] VITALS: BP 124/79
[2021-12-27 02:03] VITALS: BP 130/85
[2021-12-27] MEDS ORDERED: CEPH-510 PO (03:41)
== END 2021-12-27 03:45 | disposition home or self-care (01) ==
LOC: ER 15:54 → EDBD 15:54 → ER 12-27 03:45
DX: T85.79XA Infection and inflammatory reaction due to other internal prosthetic devices, implants and grafts, initial encounter (principal); I10 Essential (primary) hypertension; E11.9 Type 2 diabetes mellitus without complications; Z79.82 Long term (current) use of aspirin; Z79.899 Other long term (current) drug therapy; Z20.822 Contact with and (suspected) exposure to COVID-19
CPT/HCPCS: 36415; 74176; 80053; 81001; 83605; 83690; 85025; 85610; 85730; 87040; 87070; 87077; 87186; 87205; 87426; 96365; 96366; 99284; J2543; 94002